=== PATIENT | male | born 1960 | race American Indian/Alaskan Native ===

== ENCOUNTER 2020-02-12 21:51 | Emergency (ER) | payer OTHER ==
[2020-02-12] MEDS ORDERED: SODIUM CHLORIDE 0.9% 1000 ML 1,000 ML IV ONE (22:01)
--- NOTE | 2020-02-12 22:04 | Emergency Department Report ---
ED Altered Mental Status HPI - General Chief Complaint: Syncope Stated Complaint: WEAKNESS PUI?: No Time Seen by Provider: 02/12/20 21:57 Source: patient, EMS Mode of arrival: Stretcher Limitations: Language Barrier - History of Present Illness Initial Comments: Patient is a 59-year-old male who presents emergency room with complaints of loss of consciousness. Patient's states that he was eating dinner and he started feeling weak and had a syncopal episode. Patient states that he vomited and then passed out. Patient speaks Afghan. The paramedics that brought the patient and is translating. Patient answering questions appropriately. Report received from EMS. Patient complains of chest pain or shortness of breat h. Patient states he had a knee replacement to his left knee this morning at 10 AM. Patient's complains of knee pain. Patient states the chest pain is a 3 out of 10. Patient states it is better with rest and worse with exertion. Patient complains of shortness of breath. Patient states the shortness of breath is better with rest and worse with exertion. Patient denies fever or chills. Patient denies cough. MD Complaint: altered mental status, other (Syncope) -: Sudden Severity: severe Context: other (Recent surgery) Associated Symptoms: chest pain, shortness of breath, syncope, weakness. denies: cough, diaphoresis, fever/chills, headaches, loss of appetite, malaise, nausea/vomiting, rash, seizure, foul smelling urine, difficulty walking, diarrhea, incontinence - Related Data Home Medications Medication Instructions Recorded Confirmed Last Taken Aspirin 325 mg PO BID 02/13/20 02/13/20 Unknown Fenofibrate,Micronized 134 mg PO QDAY 02/13/20 02/13/20 Unknown [Fenofibrate] Meloxicam [Mobic] 15 mg PO QDAY 02/13/20 02/13/20 Unknown Ondansetron [Zofran ODT TAB] 4 mg SL Q8H PRN 02/13/20 02/13/20 Unknown Simvastatin 10 mg PO QDAY 02/13/20 02/13/20 Unknown cephALEXin [Keflex] 500 mg PO 4XD 02/13/20 02/13/20 Unknown Allergies Allergy/AdvReac Type Severity Reaction Status Date / Time No Known Allergies Allergy Unverified 02/12/20 22:06 ED Review of Systems ROS: Stated complaint: WEAKNESS Other details as noted in HPI Constitutional: weakness. denies: chills, fever Eyes: denies: eye pain, eye discharge, vision change ENT: denies: ear pain, throat pain Respiratory: shortness of breath. denies: cough, wheezing Cardiovascular: chest pain. denies: palpitations Endocrine: no symptoms reported Gastrointestinal: nausea, vomiting. denies: abdominal pain, diarrhea Genitourinary: denies: urgency, dysuria Musculoskeletal: denies: back pain, joint swelling, arthralgia Skin: denies: rash, lesions Neurological: as per HPI, weakness. denies: headache, paresthesias Psychiatric: denies: anxiety, depression Hematological/Lymphatic: denies: easy bleeding, easy bruising ED Past Medical Hx - Past Medical History Previous Medical History?: Yes Additional medical history: Osteoarthritis. Hyperlipidemia - Surgical History Past Surgical History?: Yes Additional Surgical History: Left knee replacement - 02/12/2020 - Family History Family history: no significant - Social History Smoking Status: Never Smoker Substance Use Type: None - Medications Home Medications: Home Medications Medication Instructions Recorded Confirmed Last Taken Type Aspirin 325 mg PO BID 02/13/20 02/13/20 Unknown History Fenofibrate,Micronized 134 mg PO QDAY 02/13/20 02/13/20 Unknown History [Fenofibrate] Meloxicam [Mobic] 15 mg PO QDAY 02/13/20 02/13/20 Unknown History Ondansetron [Zofran ODT TAB] 4 mg SL Q8H PRN 02/13/20 02/13/20 Unknown History Simvastatin 10 mg PO QDAY 02/13/20 02/13/20 Unknown History cephALEXin [Keflex] 500 mg PO 4XD 02/13/20 02/13/20 Unknown History ED Physical Exam - General Limitations: Language Barrier General appearance: alert, in no apparent distress - Head Head exam: Present: atraumatic, normocephalic - Eye Eye exam: Present: normal appearance, PERRL Pupils: Present: normal accommodation - ENT ENT exam: Present: mucous membranes moist - Neck Neck exam: Present: normal inspection - Respiratory Respiratory exam: Present: normal lung sounds bilaterally. Absent: respiratory distress - Cardiovascular Cardiovascular Exam: Present: regular rate, normal rhythm. Absent: systolic murmur, diastolic murmur, rubs, gallop - GI/Abdominal GI/Abdominal exam: Present: soft, normal bowel sounds. Absent: distended, tenderness, guarding - Rectal Rectal exam: Present: deferred - Extremities Exam Extremities exam: Present: normal inspection - Back Exam Back exam: Present: normal inspection - Neurological Exam Neurological exam: Present: alert, oriented X3 - Psychiatric Psychiatric exam: Present: normal affect, normal mood - Skin Skin exam: Present: warm, dry, intact, normal color. Absent: rash - Assessment Assessment Interval: Baseline - Level of Consciousness 1a. Level of Consciousness: alert/keenly responsive - LOC Questions 1b. LOC Questions: answers both correctly - LOC Command 1c. LOC Commands: performs tasks correctly - Best Gaze 2. Best Gaze: normal - Visual 3. Visual: no visual loss - Facial Palsy 4. Facial Palsy: normal symmetrical movement - Motor Arm 5a. Motor Arm Left: no drift 5b. Motor Arm Right: no drift - Motor Leg 6a. Motor Leg Left: no drift 6b. Motor Leg Right: no drift - Limb Ataxia 7. Limb Ataxia: absent - Sensory 8. Sensory: normal - Best Language 9. Best Language: no aphasia - Dysarthria 10. Dysarthria: normal - Extinction and Inattention 11. Extinction/Inattention: no abnormality - Scoring Total Score: 0 Stroke Severity: No Stroke Symptoms ED Course Vital Signs 02/12/20 02/12/20 02/12/20 21:52 22:04 22:16 Temperature 97.8 F Pulse Rate 72 68 69 Respiratory 14 13 17 Rate Blood Pressure 96/55 O2 Sat by Pulse 99 99 98 Oximetry 02/12/20 02/12/20 02/12/20 22:30 22:50 22:57 Temperature Pulse Rate 70 71 72 Respiratory 15 19 17 Rate Blood Pressure 96/55 91/47 O2 Sat by Pulse 99 99 Oximetry 02/12/20 02/12/20 02/12/20 23:00 23:02 23:16 Temperature Pulse Rate 71 69 71 Respiratory 16 15 17 Rate Blood Pressure 101/59 101/59 101/59 O2 Sat by Pulse 98 98 96 Oximetry 02/12/20 02/12/20 02/13/20 23:30 23:46 00:00 Temperature Pulse Rate 64 70 71 Respiratory 15 17 15 Rate Blood Pressure 96/57 96/57 93/57 O2 Sat by Pulse 97 99 Oximetry 02/13/20 02/13/20 02/13/20 00:52 01:00 01:16 Temperature Pulse Rate 89 75 73 Respiratory 23 19 17 Rate Blood Pressure 127/65 99/59 99/59 O2 Sat by Pulse 100 100 99 Oximetry 02/13/20 02/13/20 02/13/20 01:30 01:46 02:00 Temperature Pulse Rate 73 71 70 Respiratory 14 13 14 Rate Blood Pressure 110/59 110/59 91/56 O2 Sat by Pulse 98 99 Oximetry - Reevaluation(s) Reevaluation #1: Patient's initial evaluation done. report received from EMS. Patient's blood pressure low. But patient's blood pressure improved with fluid given by EMS. Patient is currently receiving a liter of fluids. Patient is already received 500 mils. We will monitor the patient's blood pressure. Patient was given a liter of fluids and antibiotics. 02/13/20 21:57 Reevaluation #2: Patient's blood pressure has improved and the map is greater than 70. 02/13/20 23:13 Reevaluation #3: We will try to contact the patient's son to translate for us since the patient will need to be transferred back to [facility]. 02/13/20 01:14 - Consultations Consultation #1: I discussed case with hospitalist service and they recommend transfer to her the patient had the surgery. 02/13/20 01:00 Consultation #2: [facility] transfer center paged. 02/13/20 01:08 I discussed case with the internal medicine service, Dr. Sahu at [place]. The internal medicine team states they want to talk to the orthopedist profile mill operator tape control for the group that did the surgery. 02/13/20 01:31 I discussed the case again with Dr. Sahu, internal medicine service and the orthopedist that did the surgery. Patient has been accepted by the internal medicine team to be transferred to [facility]. 02/13/20 02:33 - Lab Data Result diagrams: 02/12/20 22:20 02/12/20 22:20 Lab Results 02/12/20 02/12/20 02/12/20 Range/Units 22:20 22:20 22:20 WBC 18.4 H (4.5-11.0) K/mm3 RBC 3.91 (3.65-5.03) M/mm3 Hgb 12.0 (11.8-15.2) gm/dl Hct 36.1 (35.5-45.6) % MCV 93 (84-94) fl MCH 31 (28-32) pg MCHC 33 (32-34) % RDW 14.1 (13.2-15.2) % Plt Count 224 (140-440) K/mm3 Lymph % (Auto) 2.7 L (13.4-35.0) % Bond % (Auto) 8.2 H (0.0-7.3) % Eos % (Auto) 0.0 (0.0-4.3) % Baso % (Auto) 0.1 (0.0-1.8) % Lymph # 0.5 L (1.2-5.4) K/mm3 Bond # 1.5 H (0.0-0.8) K/mm3 Eos # 0.0 (0.0-0.4) K/mm3 Baso # 0.0 (0.0-0.1) K/mm3 Seg Neutrophils % 89.0 H (40.0-70.0) % Seg Neutrophils # 16.4 H (1.8-7.7) K/mm3 PT 13.3 (12.2-14.9) Sec. INR 1.00 (0.87-1.13) APTT 22.1 L (24.2-36.6) Sec. D-Dimer 2642.82 H (0-234) ng/mlDDU Sodium 138 (137-145) mmol/L Potassium 5.7 H (3.6-5.0) mmol/L Chloride 102.1 (98-107) mmol/L Carbon Dioxide 20 L (22-30) mmol/L Anion Gap 22 mmol/L BUN 26 H (9-20) mg/dL Creatinine 0.9 (0.8-1.5) mg/dL Estimated GFR > 60 ml/min BUN/Creatinine Ratio 29 % Glucose 196 H (75-100) mg/dL Lactic Acid (0.7-2.0) mmol/L Calcium 8.2 L (8.4-10.2) mg/dL Total Bilirubin 0.40 (0.1-1.2) mg/dL AST 31 (5-40) units/L ALT 18 (7-56) units/L Alkaline Phosphatase 31 L (35-129) units/L Ammonia (25-60) umol/L Total Creatine Kinase 369 H (55-170) units/L Troponin T < 0.010 (0.00-0.029) ng/mL Total Protein 6.5 (6.3-8.2) g/dL Albumin 3.7 L (3.9-5) g/dL Albumin/Globulin Ratio 1.3 % 02/12/20 02/12/20 02/13/20 Range/Units 22:20 Unknown 00:57 WBC (4.5-11.0) K/mm3 RBC (3.65-5.03) M/mm3 Hgb (11.8-15.2) gm/dl Hct (35.5-45.6) % MCV (84-94) fl MCH (28-32) pg MCHC (32-34) % RDW (13.2-15.2) % Plt Count (140-440) K/mm3 Lymph % (Auto) (13.4-35.0) % Bond % (Auto) (0.0-7.3) % Eos % (Auto) (0.0-4.3) % Baso % (Auto) (0.0-1.8) % Lymph # (1.2-5.4) K/mm3 Bond # (0.0-0.8) K/mm3 Eos # (0.0-0.4) K/mm3 Baso # (0.0-0.1) K/mm3 Seg Neutrophils % (40.0-70.0) % Seg Neutrophils # (1.8-7.7) K/mm3 PT (12.2-14.9) Sec. INR (0.87-1.13) APTT (24.2-36.6) Sec. D-Dimer (0-234) ng/mlDDU Sodium (137-145) mmol/L Potassium (3.6-5.0) mmol/L Chloride (98-107) mmol/L Carbon Dioxide (22-30) mmol/L Anion Gap mmol/L BUN (9-20) mg/dL Creatinine (0.8-1.5) mg/dL Estimated GFR ml/min BUN/Creatinine Ratio % Glucose (75-100) mg/dL Lactic Acid 4.90 H* 3.30 H* (0.7-2.0) mmol/L Calcium (8.4-10.2) mg/dL Total Bilirubin (0.1-1.2) mg/dL AST (5-40) units/L ALT (7-56) units/L Alkaline Phosphatase (35-129) units/L Ammonia 23.0 L (25-60) umol/L Total Creatine Kinase (55-170) units/L Troponin T (0.00-0.029) ng/mL Total Protein (6.3-8.2) g/dL Albumin (3.9-5) g/dL Albumin/Globulin Ratio % - EKG Data -: EKG Interpreted by Mi EKG shows normal: sinus rhythm, axis, intervals, QRS complexes, ST-T waves Rate: normal - Radiology Data Radiology results: report reviewed CT head/brain wo con INDICATION: Syncope. TECHNIQUE: All CT scans at this location are performed using CT dose reduction for ALARA by means of automated exposure control. COMPARISON: None available. FINDINGS: Paranasal and mastoid sinuses are clear. Moderate calcification in the basal ganglia and choroid plexus. No mass, hemorrhage or other significant abnormality. IMPRESSION: 1. Negative study. CT angio chest INDICATION: P.E. PROTOCOL!!! Syncope, Shortness of breath, elevated D-dimer Omnipaquee 350 / 100ml's was used for this exam.. TECHNIQUE: All CT scans at this location are performed using CT dose reduction for ALARA by means of automated exposure control. COMPARISON: None available. FINDINGS: Mediastinum, hebert and axillae are negative. Upper abdomen shows a distended stomach filled with ingested food. No pleural fluid or significant parenchymal disease. No evidence of pulmonary embolus. IMPRESSION: 1. Negative study. CHEST 1 VIEW INDICATION: Altered Mental Status COMPARISON: None FINDINGS: Support devices: None Heart: Normal Lungs/Pleura: No acute pulmonary or pleural findings. IMPRESSION: 1. No acute disease. - Medical Decision Making Patient is a 59-year-old male who presents emergency room with complaints of a syncopal episode and hypotension and chest pain or shortness of breath. Patient brought in by EMS. Patient had a surgery within 24 hours at [facility] for a left total knee replacement. Patient had labs done which were essentially unremarkable except for a lactic acidosis, elevated d-dimer, elevated WBC, abnormal chemistry. Patient's blood pressure improved with fluids. Patient had a head CT done due to the syncopal episode. Patient had a CTA of the chest due to the elevated d-dimer. Patient given fluids and broad-spectrum antibiotics. Patient transferred back to the facility where he had a knee replacement done. - Differential Diagnosis Hypotension, PE, syncope, chest pain, shortness of breath, infection Critical Care Time: Yes Critical care time in (mins) excluding proc time.: 45 Critical care attestation.: If time is entered above; I have spent that time in minutes in the direct care of this critically ill patient, excluding procedure time. Critical Care Time: 45 minutes ED Disposition Clinical Impression: SOB (shortness of breath), Elevated d-dimer, Lactic acid acidosis Hypotension Qualifiers: Hypotension type: unspecified hypotension type Qualified Code(s): I95.9 - Hypotension, unspecified S/P knee replacement Qualifiers: Laterality: left Qualified Code(s): Z96.652 - Presence of left artificial knee joint Chest pain Qualifiers: Chest pain type: unspecified Qualified Code(s): R07.9 - Chest pain, unspecified Syncope Qualifiers: Syncope type: unspecified Qualified Code(s): R55 - Syncope and collapse Disposition: DC/TX-70 ANOTHER TYPE HLTHCARE Is pt being admited?: No Does the pt Need Aspirin: No Condition: Critical Time of Disposition: 02:37
[2020-02-12 22:47] LABS: Basophils % (Auto) 0.1 % (0.0-1.8); Hematocrit 36.1 % (35.5-45.6); Lymphocytes # (Auto) 0.5 K/mm3 (1.2-5.4); Lymphocytes % (Auto) 2.7 % (13.4-35.0); Mean Corpuscular HGB Conc 33 % (32-34); Mean Corpuscular Volume 93 fl (84-94); Monocytes # (Auto) 1.5 K/mm3 (0.0-0.8); Monocytes % (Auto) 8.2 % (0.0-7.3); Platelet Count 224 K/mm3 (140-440); Red Blood Count 3.91 M/mm3 (3.65-5.03); Red Cell Distribution Width 14.1 % (13.2-15.2)
[2020-02-12 23:02] LABS: Partial Thromboplastin Time 22.1 Sec. (24.2-36.6)
[2020-02-12 23:04] LABS: Albumin 3.7 g/dL (3.9-5); BUN/Creatinine Ratio 29; Blood Urea Nitrogen 26 mg/dL (9-20); Calcium 8.2 mg/dL (8.4-10.2); Hemolysis Index 221
[2020-02-12 23:05] LABS: Alanine Aminotransferase 18 units/L (7-56)
[2020-02-12] MEDS ORDERED: CLINDAMYCIN 600 MG/50 mL 600 MG/50 ML BAG IV ONE (23:26)
--- NOTE | 2020-02-12 23:41 | XRay Report ---
CHEST 1 VIEW INDICATION: Altered Mental Status COMPARISON: None FINDINGS: Support devices: None Heart: Normal Lungs/Pleura: No acute pulmonary or pleural findings. IMPRESSION: 1. No acute disease. Signer Name: Jose Manuel Higgins MD Signed: 02/12/2020 11:37 PM Workstation Name: [id number]
--- NOTE | 2020-02-13 01:00 | Cat Scan Report ---
CT head/brain wo con INDICATION: Syncope. TECHNIQUE: All CT scans at this location are performed using CT dose reduction for ALARA by means of automated e xposure control. COMPARISON: None available. FINDINGS: Paranasal and mastoid sinuses are clear. Moderate calcification in the basal ganglia and choroid plex us. No mass, hemorrhage or other significant abnormality. IMPRESSION: 1. Negative study. Signer Name: Jose Manuel Higgins MD Signed: 02/13/2020 12:55 AM Workstation Name: [id number]
--- NOTE | 2020-02-13 01:01 | Cat Scan Report ---
CT angio chest INDICATION: P.E. PROTOCOL!!! Syncope, Shortness of breath, elevated D-dimer Omnipaquee 350 / 100ml's was used fo r this exam.. TECHNIQUE: All CT scans at this location are performed using CT dose reduction for ALARA by means of automated e xposure control. COMPARISON: None available. FINDINGS: Mediastinum, hebert and axillae are negative. Upper abdomen shows a distended stomach filled with inges kathy food. No pleural fluid or significant parenchymal disease. No evidence of pulmonary embolus. IMPRESSION: 1. Negative study. Signer Name: Jose Manuel Higgins MD Signed: 02/13/2020 12:57 AM Workstation Name: [id number]
[2020-02-13] MEDS ORDERED: SODIUM CHLORIDE 0.9% 1000 ML 1,000 ML IV ONE ×2 (01:12→03:02)
[2020-02-13] MEDS ORDERED: SODIUM CHLORIDE 0.9% 100 ML IVPB IV SCH (03:00)
[2020-02-13 03:37] LABS: Bilirubin,Urine NEG (Negative); Blood,Urine NEG (Negative); Color,Urine Straw (Yellow); Protein,Urine <15 mg/dL mg/dL (Negative); Urobilinogen,Urine < 2.0 mg/dL (<2.0); WBC,Urine < 1.0 /HPF (0.0-6.0)
[2020-02-13 03:43] LABS: Amphetamine Screen,Urine PRESUMPTIVE NEGATIVE; Benzodiazepines Screen,Urine PRESUMPTIVE NEGATIVE; Cannabinoid Screen,Urine PRESUMPTIVE NEGATIVE; Cocaine Screen,Urine PRESUMPTIVE NEGATIVE; Methadone Screen,Urine PRESUMPTIVE NEGATIVE; Opiate Screen,Urine PRESUMPTIVE NEGATIVE
[2020-02-13 05:20] VITALS: BP 104/64
== END 2020-02-13 04:56 | disposition other institution (70) ==
LOC: ED 21:51
DX: I95.9 Hypotension, unspecified (principal); R55 Syncope and collapse; E87.2 Acidosis; R07.89 Other chest pain; E78.49 Other hyperlipidemia; R06.02 Shortness of breath; Z96.652 Presence of left artificial knee joint; Z79.899 Other long term (current) drug therapy
CPT/HCPCS: 36415; 70450; 71045; 71275; 80053; 80307; 81001; 82140; 82550; 84484; 85025; 85379; 85610; 85730; 93005; 96361; 96365; 99285; J7030; Q9967